=== PATIENT | female | born 1965 | race Caucasian/White ===

== ENCOUNTER → 2019-01-21 12:39 | Outpatient (CLI) | payer OTHER | END | disposition home or self-care (01) | LOC: D.RAD 12:39 | PROVIDERS: ATTEND Pediatrics | DX: Z02.71 Encounter for disability determination (principal) ==

== ENCOUNTER → 2019-12-16 13:35 | Outpatient (CLI) | payer OTHER ==
[2019-05-20 13:46] VITALS: BMI 22.6
[~2019-12-16 13:35] MED LIST: OMEPRAZOLE40 MG PO; VOLTAREN75 MG PO
== END | disposition home or self-care (01) ==
LOC: D.LAB 13:35
PROVIDERS: ATTEND Pain Medicine Interventional Pain Medicine
DX: M54.2 Cervicalgia (principal)